=== PATIENT | female | born 1965 | race Two or more races ===

== ENCOUNTER → 2024-04-25 | Outpatient (CLI) | payer MEDICAID, SELFPAY ==
--- NOTE | 2024-04-25 16:21 | XR_ITS ---
Examination: PA lateral chest 2 views Technique: Upright PA lateral chest 2 views Exam date and time: April 25, 2024 1705 hrs. Comparison August 04, 2021 Indications: Coughing chest tightness today asthma history Findings: Mild prominence left ventricle Ectatic thoracic aorta No lobar pneumonia or pulmonary edema Moderate osteopenia Impression: No pneumonia or pulmonary edema
== END | disposition home or self-care (01) ==
PROVIDERS: PCP Internal Medicine; Referring Provider Nurse Practitioner Family; Visit Provider Nurse Practitioner Family
DX: R07.81 Pleurodynia (principal)
CPT/HCPCS: 71046

== ENCOUNTER → 2025-01-06 | Outpatient (CLI) | payer MEDICAID, SELFPAY ==
--- NOTE | 2025-01-06 14:45 | XR_ITS ---
Examination: Screening digital mammography, bilateral Computer aided detection 3-D breast Tomosynthesis, bilateral Date and time of exam: January 06, 2025 1430 hours Indication: Screening Technique: Nonmagnified MLO, CC views of the breasts to been obtained, reconstructed from 3-D Tomosynthesis images. R2 computer aided detection program utilized for evaluation of suspicious masses and/or abnormal calcifications. 3-D Tomosynthesis images obtained. Findings: Scattered areas of fibroglandular density. Benign calcifications. No suspicious masses Probably benign intramammary lymph nodes upper left breast Impression: BI-RADS Category 3: Probably benign findings Recommend 1 additional 6 month left mammogram follow-up to document stability of probably benign intramammary lymph nodes upper left breast
== END | disposition home or self-care (01) ==
DX: Z12.31 Encounter for screening mammogram for malignant neoplasm of breast (principal); R92.333 Mammographic heterogeneous density, bilateral breasts; R92.8 Other abnormal and inconclusive findings on diagnostic imaging of breast
CPT/HCPCS: 77063; 77067